=== PATIENT | female | born 1970 ===

== ENCOUNTER 2019-12-15 07:47 | Outpatient (CLI) | payer OTHER | END 2019-12-15 12:52 | disposition home or self-care (01) | LOC: NUCLEAR 07:47 | DX: E05.80 Other thyrotoxicosis without thyrotoxic crisis or storm (principal); E04.1 Nontoxic single thyroid nodule; E04.8 Other specified nontoxic goiter | CPT/HCPCS: 78012; A9531 ==

== ENCOUNTER 2019-12-16 07:50 | Outpatient (CLI) | payer OTHER | END 2019-12-16 12:08 | disposition home or self-care (01) | LOC: NUCLEAR 07:50 | DX: E05.80 Other thyrotoxicosis without thyrotoxic crisis or storm (principal); E04.1 Nontoxic single thyroid nodule; E04.8 Other specified nontoxic goiter | CPT/HCPCS: 78013; A9512 ==